=== PATIENT | male | born 1960 | race Caucasian/White ===

== ENCOUNTER 2019-08-25 15:33 | Outpatient (CLI) | payer OTHER ==
[~2019-08-25] VITALS: Ht 177.8 cm; Wt 76.2 kg
[~2019-08-25 15:33] MED LIST: ALLEGRA-D 24 H1 EACH PO; ALLOPURINOL 10100 M1 PO; CLARITIN10 MG PO; GOUT MED PO; INDOCIN SR75 MG PO; NORCO 5-325 TA1 EACH PO
[2019-08-25] MEDS ORDERED: VITAMIN C100 MG PO (15:36)
[2019-08-25] MEDS ORDERED: JARDIANCE10 MG PO (15:36)
[2019-08-25] MEDS ORDERED: METFORMIN HCL500 M3 PO (15:36)
[2019-08-25] MEDS ORDERED: VITAMIN D400 UNIT PO (15:36)
[2019-08-25 16:00] LABS: ABSOLUTE BASOPHILS 0.1 thou/uL (0.0-0.2); ABSOLUTE EOSINOPHILS 0.2 thou/uL (0.0-0.7); ABSOLUTE LYMPHOCYTES 1.8 thou/uL (0.8-5.3); ABSOLUTE MONOCYTES 0.5 thou/uL (0.0-1.2); ABSOLUTE NEUTROPHILS 3.4 thou/uL (1.6-8.1); BASOPHILS 0.9 %; EOSINOPHILS 4.2 %; HEMATOCRIT 45.2 % (42.0-52.0); LYMPHOCYTES 29.8 %; MCH 29.3 pg (26.0-34.0); MCHC 35.4 g/dL (28.0-37.0); MCV 82.8 fL (80.0-100.0); MONOCYTES 8.8 %; MPV 7.5 fl. (7.2-11.1); NUCLEATED RBCS 0 /100WBC; PLATELET COUNT* 257 thou/uL (150-400); POLYS 56.3 %; RBC 5.47 mil/uL (4.50-6.00)
[2019-08-25 16:09] LABS: CALCIUM 9.1 mg/dL (8.5-10.1); CREATININE 0.9 mg/dL (0.6-1.3); POTASSIUM 4.3 mmol/L (3.5-5.1)
[2019-08-25 16:13] LABS: APTT 25.6 Seconds (25.0-31.3); INR 0.9; PROTIME 9.5 Seconds (9.20-11.50)
[2019-08-25 16:36] LABS: ALBUMIN 3.3 g/dL (3.4-5.0); CK-MB MASS 1.1 ng/mL (<0.5-3.6); MAGNESIUM 1.8 mg/dL (1.8-2.4); TOTAL BILIRUBIN 0.7 mg/dL (<0.1-1.0)
[2019-08-25 16:50] VITALS: BP 174/116
--- NOTE | 2019-08-26 07:48 | EKG ---
[place] [address] ELECTROCARDIOGRAM REPORT Name: THELMA KLEIN Room: [facility]..#: [id number] Admission: 08/25/19 Attend Phys: FOR E.D. REG USE Discharge: Date of : 62 Report #: [id number] THIS REPORT FOR: //name// [facility] ED Test Date: 2019-08-25 Test Time: 15:36:44 Pat Name: THELMA KLEIN Department: Room: Gender: M Discharge Planner: : [id number] Requested By: Oj Connor Order Number: [id number] MD: Dionisio Kendall Measurements Intervals [place] Rate: 103 P: 33 LA: 157 QRS: -49 QRSD: 88 T: 27 QT: 324 QTc: 424 Interpretive Statements Sinus tachycardia Left anterior fascicular block Abnormal R-wave progression, late transition Left ventricular hypertrophy Compared to ECG 07/04/2014 14:54:14 Sinus rhythm no longer present Electronically Signed On 08-26-2019 7:47:50 [employer] by Dionisio Kendall [email or web address] <ELECTRONICALLY SIGNED> By: Dionisio Kendall MD, [facility] 08/26/19 0747 [id number] Dionisio Kendall MD, [facility] /EPI
[2019-08-28] MEDS ORDERED: POTASSIUM20 PO (10:01)
[2019-08-28] MEDS ORDERED: ADDERALL 10 MG10 MG PO (10:02)
[2019-08-28] MEDS ORDERED: ASA81BEC PO (10:02)
[2019-08-28] MEDS ORDERED: MOBIC15 MG PO (14:07)
[2019-08-28] MEDS ORDERED: LIDODERM1 EACH TOP (14:07)
== END 2019-08-28 16:53 | disposition home or self-care (01) ==
LOC: M.ERS 08-28 16:53
PROVIDERS: Family Medicine
DX: J98.11 Atelectasis (principal); J84.10 Pulmonary fibrosis, unspecified; K56.41 Fecal impaction